=== PATIENT | female | born 1950 | race Caucasian/White ===

== ENCOUNTER 2018-10-03 16:32 | Emergency (ER) | payer MEDICARE, BC ==
[~2018-10-03] VITALS: Ht 154.9 cm; Wt 70.3 kg
[2018-10-03 17:30] LABS: BASOPHILS % 0.2 % (0.0-1.0); EOSINOPHILS # (AUTO) 0.2 (0.0-0.4); EOSINOPHILS % 2.3 % (0.0-6.0); HEMATOCRIT 46.8 % (34.2-44.1); LYMPHOCYTES # (AUTO) 2.4 (1.0-3.2); LYMPHOCYTES % 24.6 % (18.0-39.1); MEAN CORPUSCULAR HEMOGLOBIN 29.2 pg (28-32); MEAN CORPUSCULAR HGB CONC 32.1 g/dL (31-35); MEAN CORPUSCULAR VOLUME 91.2 fL (81-99); MONOCYTES # (AUTO) 0.7 (0.2-0.8); MONOCYTES % 7.1 % (4.4-11.3); NEUTROPHILS # (AUTO) 6.3 (2.1-6.9); NEUTROPHILS % 65.5 % (38.7-80.0); PLATELET COUNT 329 x10e3/uL (140-360); RED BLOOD COUNT 5.13 x10e6/uL (3.6-5.1); RED CELL DISTRIBUTION WIDTH 13.7 % (11.7-14.4)
[2018-10-03 17:42] LABS: CLARITY,URINE CLEAR (CLEAR); COLOR,URINE YELLOW (YELLOW); KETONES,URINE NEGATIVE (NEGATIVE); LEUKOCYTE ESTERASE ,URINE NEGATIVE (NEGATIVE); NITRITE,URINE NEGATIVE (NEGATIVE); PROTEIN,URINE DIPSTICK NEGATIVE (NEGATIVE)
[2018-10-03 17:43] LABS: BILIRUBIN,URINE NEGATIVE (NEGATIVE); URINE UROBILINOGEN 0.2 mg/dL (0.2 - 1)
[2018-10-03 17:45] LABS: BACTERIA,URINE MODERATE /HPF; EPITHELIAL CELLS,URINE FEW /LPF; RBC,URINE 0-5 /HPF (0-5); WBC,URINE (MAN) 0-5 /HPF (0-5)
[2018-10-03 17:48] LABS: ALBUMIN 4.2 g/dL (3.5-5.0); ALBUMIN/GLOBULIN RATIO 1.5 (0.8-2.0); CALCIUM 9.6 mg/dL (8.4-10.2); CREATININE, SERUM 1.04 mg/dL (0.57-1.11)
--- NOTE | 2018-10-03 17:51 | Diagnostic Imaging Report ---
EXAMINATION: Head CT HISTORY: Dizziness, double lesion, lightheadedness, headache, hypertension, possible stroke COMPARISON: None. TECHNIQUE: Multidetector axial images were obtained without contrast from the foramen magnum to the vertex . The images were reconstructed using brain and bone algorithms. Thin section brain images were reformatted into coronal and sagittal planes. Image quality: Motion/streaking artifact limits the evaluation of the skull base and posterior cranial fossa. Dose modulation, iterative reconstruction, and/or weight based adjustment of the mA/kV was utilized to reduce the radiation dose to as low as reasonably achievable. FINDINGS: Parenchyma: 1. No abnormal densities. 2. No mass or hemorrhage. No CT evidence of acute territorial vascular insult. Extra-axial spaces:No abnormal density. No extra-axial fluid collections Brain volume: Normal for age. Ventricles: No hydrocephalus or displacement. Arteries: No density suggestive of thrombus. Dural sinuses: No abnormal density. Extra-axial spaces: No abnormal density. Foramen magnum: No mass, Chiari malformation, or basilar invagination. Sella: No obvious mass. Paranasal/mastoid sinuses: Imaged portions unremarkable. Skull/Scalp: No lytic or blastic lesions. No fractures. IMPRESSION: No intracranial abnormalities, particularly no hemorrhage or acute cortical infarcts. Signed by: Dr. Corrie Villatoro M.D. on 10/03/2018 5:48 PM
--- NOTE | 2018-10-03 17:57 | Diagnostic Imaging Report ---
A single frontal view of the chest. HISTORY: Chest pain, possible stroke COMPARISON: None available. DISCUSSION: Portable technique, limits sensitivity of the exam. Soft tissue attenuation partially limits sensitivity of the exam. Overlying monitoring leads. Tubes/Lines: None Lungs and pleura: Low lung volumes result in bibasilar vascular crowding, accentuation of the pulmonary interstitial markings, central pulmonary vasculature, and the cardiac silhouette. Allowing for these limitations, the findings are as follows: No evidence of a consolidative pneumonia or pulmonary alveolar edema. No definite pleural effusion or pneumothorax is identified. Heart and mediastinum: The cardiomediastinal silhouette appears unremarkable. Bones and soft tissues: Partially visualized metallic cervical fixation hardware. IMPRESSION: No acute radiographic abnormality. Signed by: Dr. Maikel Kilgore D.O., M.M.M. on 10/03/2018 5:54 PM
--- NOTE | 2018-10-03 19:05 | NUR ---
WALKING ROUNDS WITH TABATHA MCGRAW DAY SHIFT NURSE.
--- NOTE | 2018-10-03 19:37 | Diagnostic Imaging Report ---
History: Possible stroke, double vision Comparison studies: Head CT 10/03/2018 Technique: Sagittal and axial T2 FS, axial DWI, axial T2*GRE, axial T1 FLAIR and axial coronal T2 FLAIR. Intravenous contrast: None Findings: Scalp: Normal in signal. No masses. Bone marrow: Normal in signal intensity. Brain sulci: Appropriate for age. Ventricles: Normal in size. No hydrocephalus. Extra axial spaces: No mass, no fluid collection. Parenchyma: No mass, hemorrhage, acute ischemia or chronic cortical vascular infarcts. A few subtle T2 FLAIR hyperintense foci in the supratentorial white matter are nonspecific but may reflect minimal chronic microvascular ischemic changes. Suprasellar region: No abnormalities. Craniocervical junction: Patent foramen magnum. No Chiari malformation. Vessels: Normal flow-voids in the arteries and sinuses. Incidental findings: Minimal reactive mucosal thickening or small effusion at the right mastoid tip. IMPRESSION: 1. No acute ischemia or other acute intracranial abnormalities. 2. Minimal age-related chronic microvascular ischemic changes. Signed by: Dr. Mandeep Celestin M.D. on 10/03/2018 7:34 PM
[2018-10-03 21:23] VITALS: BP 133/81
== END 2018-10-03 21:38 | disposition home or self-care (01) ==
LOC: ER 16:32
DX: R53.1 Weakness (principal); R42 Dizziness and giddiness; H53.2 Diplopia
CPT/HCPCS: 36415; 70450; 70551; 71045; 80053; 81001; 85025; 93005; 99284

== ENCOUNTER 2019-03-26 14:00 | Outpatient (RCR) | payer MEDICARE, BC | END 2019-04-10 | LOC: PT 14:00 | PROVIDERS: ATTEND Psychiatry & Neurology Clinical Neurophysiology | DX: M47.27 Other spondylosis with radiculopathy, lumbosacral region (principal) ==